=== PATIENT | female | born 1990 | race Caucasian/White ===

== ENCOUNTER 2017-05-26 14:46 | Emergency (ER) | payer BC ==
[2017-05-26 14:52] VITALS: BP 110/74
--- NOTE | 2017-05-26 15:36 | UC ---
Complaint Female HPI - HPI Summary HPI Summary: Pt is , 1 medical ab. Has been getting positive tests for about a week. Tried to set up apt at [facility], but they won't see her until 8 weeks and she' s not sure how far along she is. Boyfriend is only sexual partner and [place] of state. She visited him in early March and they were sexually active; her period came a little over a week later (it was early). She did not see him for the rest of March, then had a short period 04/22 - 04/23 and visited him again over - 05/02. Usual cycles are about 24 days long. Took her first HPT around 05/19 or 05/20 and it was a strong positive, also started feeling nauseated and tired around that time. - History Of Current Complaint Chief Complaint: UCGU Stated Complaint: WANTS TO KNOW HOW FAR ALONG Time Seen by Provider: 05/26/17 14:54 Hx Obtained From: Patient Hx Last Menstrual Period: 04/22/17 ?: Yes Onset/Duration: Still Present Timing: Constant Severity Currently: None Character: Not Applicable Aggravating Factor(s): Nothing Alleviating Factor(s): Nothing Associated Signs And Symptoms: Positive: Nausea. Negative: Vaginal Bleeding/ Discharge, Vaginal Discharge, Vomiting(# Of Episodes =) Related Hx: - 2, Para - 0 - Allergies/Home Medications Allergies/Adverse Reactions: Allergies Allergy/AdvReac Type Severity Reaction Status Date / Time No Known Allergies Allergy Verified 05/26/17 14:52 PMH/Surg Hx/FS Hx/Imm Hx Previously Healthy: Yes - Surgical History Surgical History: Yes Surgery Procedure, Year, and Place: appendectomy-2010, TONSILLECTOMY - Family History Known Family History: Positive: Other - no heritable genetic disorders in her family - Social History Alcohol Use: None Substance Use Type: None Smoking Status (MU): Never Smoked Tobacco Review of Systems Constitutional: Negative Skin: Negative Eyes: Negative ENT: Negative Respiratory: Negative Cardiovascular: Negative Gastrointestinal: Nausea Genitourinary: Negative Motor: Negative Neurovascular: Negative Musculoskeletal: Negative Neurological: Negative Psychological: Negative All Other Systems Reviewed And Are Negative: Yes Physical Exam Triage Information Reviewed: Yes Appearance: Well-Appearing, No Pain Distress, Well-Nourished Vital Signs: Initial Vital Signs Temp 98.5 F 07/12/17 14:49 Pulse 72 05/26/17 14:49 Resp 16 05/26/17 14:49 BP 110/74 05/26/17 14:49 Pulse Ox 100 05/26/17 14:49 Vital Signs Reviewed: Yes Eye Exam: Normal Eyes: Positive: Conjunctiva Clear ENT Exam: Normal ENT: Positive: Normal ENT inspection, Hearing grossly normal, Pharynx normal, TMs normal Dental Exam: Normal Neck exam: Normal Neck: Positive: Supple, Nontender, No Lymphadenopathy Respiratory Exam: Normal Respiratory: Positive: Chest non-tender, Lungs clear, Normal breath sounds, No respiratory distress, No accessory muscle use Cardiovascular Exam: Normal Cardiovascular: Positive: RRR, No Murmur Musculoskeletal Exam: Normal Neurological Exam: Normal Neurological: Positive: Alert Psychological Exam: Normal Skin Exam: Normal Complaint Female Dx - Course Course Of Treatment: Discussed need for early care - as pt does not report any high risk history, encouraged her to make an appointment for around 8 weeks as the Ob office recommended. Provided 20 minutes of counseling relating to eating, activity, smoking/drug use, and general information about care. - Differential Dx/Diagnosis Provider Diagnoses: . counseling Discharge - Discharge Plan Condition: Stable Disposition: HOME Patient Education Materials: (ED) Additional Instructions: As we discussed, given your menstrual cycles and sexual activity, you are most likely about 5 weeks . A rough estimate of your due date is January 24, 2018. There is no urgent need for you to have care before you move; you only need an early ultrasound if you have severe pain, bleeding, or if your cycles are very irregular. I recommend you make a appointment for your practice of choice in [place] for right after you move. If you have problems with nausea, make sure you drink water and eat snacks every 1-2 hours. You can also take a doxylamine (unisom) 25mg at bedtime and vitamin B6 during the day; these medicines are often packaged in a time-release pill and marketed for nausea in .
== END 2017-05-26 15:33 | disposition home or self-care (01) ==
LOC: UCEAST 14:46
DX: Z34.81 Encounter for supervision of other normal pregnancy, first trimester (principal)
CPT/HCPCS: 99201; G0463

== ENCOUNTER 2019-10-29 04:23 | Inpatient (IN) | payer OTHER ==
[2019-10-29 07:01] LABS: Urine Benzodiazepine Screen None Detected (None Detect); Urine Opiates Screen None Detected (None Detect)
--- NOTE | 2019-10-29 08:21 | PN ---
L&D Outpatient: Visit - Reproductive Information Estimated Due Date: 10/21/19 Gestational Age: 41 Weeks and 1 Days : 2 Para: 0 - Reason for Visit Visit Reason: Pt reports ctx starting yesterday afternoon and increasing in frequency and intensity overnight and into the morning. Denies LOF, reports active FM. - Antepartal Records Antepartal Record: Reviewed, Uncomplicated - Patient History Patient History Significant: Yes Patient History Significant For: LSIL Pap Review of Systems Constitutional: Uncomfortable CV Complaint: No Respiratory: Shortness of Breath: No Gastrointestinal: No Nausea/Vomiting, Normal Bowel Movement Genitourinary: No Dysuria, No Bleeding, No Leaking Fluid Musculoskeletal: No Epigastric Pain, Contractions Neurological: No Headache, No Visual Changes Movement: Normal L&D Outpatient: Exam Vitals - Most Recent: T-98.0, P-84, R-20, BP-123/79 Lab Values - Entire Visit: Laboratory Tests 10/29/19 06:15 Urine Opiates Screen None detected Ur Barbiturates Screen None detected Ur Phencyclidine Scrn None detected Ur Amphetamines Screen None detected U Benzodiazepines Scrn None detected Urine Cocaine Screen None detected U Cannabinoids Screen None detected - Cervical Exam Cervical Exam: on arrival was 1-2/ very posterior/ 60%/ high. on recheck 2 hours later was 2cm / 80%/ somewhat posterior/ -2. - Abdominal Exam Abdomen Exam: Non-Tender, Fundal Height Consistent with Dates - Membranes Membrane Status: Intact - Ultrasound/Biophysical Profile Ultrasound Status: Not Done EFM Findings - External Monitor Findings Baseline Heart Rate: 120 External Monitor Findings: Accelerations Present, No Pattern of Variable or Late Decelerations, Variability Moderate, Baseline Stable Contractions: Regular, Mild, Moderate, < 45 Seconds, 45-90 Seconds Contraction Frequency: 2-4 minutes L&D Outpatient: Asses/Plan Assessment: 29 year old at 41 1/7 weeks gestation in early labor, no evidence of acidemia or chorioamnionitis. - Discharge Diagnosis Discharge Diagnosis: Supervision-Normal Preg Plan: Continue Observation - Will recheck cervix in another 2 hours or sooner as needed.
[2019-10-29] MEDS ORDERED: Nalbuphine* 10 MG/ML 1 ML VIAL IM ONE (15:00)
[2019-10-29] MEDS ORDERED: Promethazine INJ(RESTRICTED)* 25 MG/ML 1 ML VIAL IM ONE (15:00)
--- NOTE | 2019-10-29 15:03 | PN ---
Progress Note - Progress Note Date of Service: 10/29/19 Note: Rechecked pt's cervix, still 3cm, unchanged from previous. Pt tearful, states she is in a lot of pain. Offered Nubain and Phenergan, pt would like to try.
--- NOTE | 2019-10-29 18:29 | PN ---
Progress Note - Progress Note Date of Service: 10/29/19 Note: Pt sleeping comfortably following Nubain and Phenergan administration. Will reevaluate and discuss plan of care when she wakes.
[2019-10-29] MEDS ORDERED: Buffered Lidocaine 1% SYRIN* 1 ML/SYRINGE INTRADERM ONE (21:23)
[2019-10-29] MEDS ORDERED: Lactated Ringers 1000 ML Bag* 1,000 ML IV ONE (21:23)
--- NOTE | 2019-10-29 21:44 | HP ---
General Information - Reason for Visit Pt admitted to L&D for postdates IOL in the context of prolonged prodromal labor. - General Information Maternal Age: 29 Grav: 2 Para: 0 SAB: 1 IEA: 0 Estimated Due Date: 10/21/19 Determined By: Early Ultrasound Gestational Age in Weeks/Days: 41 4/7 weeks Maternal Blood Type and Rh: A Positive - Results this Serology/RPR Result: Non-Reactive Rubella Result: Immune HBsAg Result: Negative HIV Result: Negative GBS Culture Result: Negative Past Medical History Delivery History: See Records - primiparous Pertinent Past Medical History: Non-Contributory Pertinent Past Surgical History: See Records - tonsillectomy Pertinent Family History: Non-Contributory - Antepartal Records Antepartal Records: Reviewed, Uncomplicated Review of Systems Constitutional: Comfortable CV Complaint: No Respiratory: Shortness of Breath: No Gastrointestinal: No Nausea/Vomiting, Normal Bowel Movement Genitourinary: No Dysuria, No Bleeding, No Leaking Fluid Musculoskeletal: No Epigastric Pain, Contractions Neurological: No Headache, No Visual Changes Movement: Normal Exam Allergies/Adverse Reactions: Allergies No Known Allergies Allergy (Verified 05/26/17 14:52) T-98.4, P-75, R-20, BP-107/70 Lab Values - Entire Visit: Laboratory Tests 10/29/19 06:15 Urine Opiates Screen None detected Ur Barbiturates Screen None detected Ur Phencyclidine Scrn None detected Ur Amphetamines Screen None detected U Benzodiazepines Scrn None detected Urine Cocaine Screen None detected U Cannabinoids Screen None detected - Measurements Height: 5 ft 7.5 in Weight: 80.739 kg Weight in lbs: 178.591724 Body Mass Index (BMI): 27.4 Pre- Weight: 63.503 kg Weight Gained This : 38 lbs and 0 ozs - Exam Breast: Breast Exam Deferred CVA: No CVA Tenderness Extremities: No Edema Heart: Normal Rhythm/Heart Sounds HEENT: No Significant Findings Lungs: Clear Bilaterally Rectal: Rectal Exam Deferred Reflexes: DTR 2+ Thyroid: No Thyromegaly - Abdominal Exam Abdomen Exam: Non-Tender, Fundal Height Consistent with Dates - Ultrasound/Biophysical Profile Ultrasound Status: Not Done Targeted Exam Findings See L&D Outpatient Visit Provider Note for Findings: Yes Estimated Weight: 7.5# Cervical Exam: 3cm Effacement: 80% Station: -1 Presenting Part: Vertex Membrane Status: Intact Bleeding/Discharge: Bloody Show EFM Findings - External Monitor Findings Baseline Heart Rate: 115 External Monitor Findings: Accelerations Present, No Pattern of Variable or Late Decelerations, Variability Moderate, Baseline Stable Contractions: Irregular, Mild, 45-90 Seconds Contraction Frequency: 3-5 minutes Assessment/Plan - Assessment 29 year old at 41 1/7 weeks gestation with prodromal labor, no evidence of acidemia - Obstetrical Risk Factors Obstetrical Risk Factors: Post-Dates - Plan Plan: Induction, Admit - Anticipate Vaginal Delivery Plan Comment: Discussed options with pt including discharge home to await active labor with return as scheduled for IOL Wednesday if not delivered sooner, vs IOL. Pt prefers to induce labor as soon as possible. Risks and benefits of Pitocin use reviewed. Pt in agreement with plan for IOL with Pitocin for postdates and prolonged prodromal labor. - Date/Time of Admission Date of Admission: 10/29/19 Time of Admission: 09:49
[2019-10-29] MEDS ORDERED: Oxytocin in LR* 20 UNITS/1,000 ML BAG IVPB SCH (22:00)
[2019-10-29] MEDS ORDERED: Lactated Ringers 1000 ML Bag* 1,000 ML IV SCH (22:00)
[2019-10-29 22:06] LABS: ABS Eosinophils 0.1 10^3/ul (0-0.6); ABS Lymphocytes 1.5 10^3/ul (1.0-4.8); ABS Monocytes 0.5 10^3/ul (0-0.8); ABS Neutrophils 6.3 10^3/ul (1.5-7.7); Eosinophil % 0.8 %; Hematocrit 34 % (35-47); Hemoglobin 11.8 g/dL (12.0-16.0); Lymphocyte % 18.1 %; Mean Corpuscular HGB Conc 35 g/dL (31-36); Mean Corpuscular Hemoglobin 32 pg (27-31); Mean Corpuscular Volume 91 fL (80-97); Mean Platelet Volume 10.6 fL (7.4-10.4); Platelet Count 164 10^3/uL (150-450); Red Blood Count 3.72 10^6 /uL (3.70-4.87); Red Cell Distribution Width 14 % (10-15); White Blood Count 8.4 10^3/uL (3.5-10.8)
[2019-10-29] MEDS ORDERED: Oxytocin in LR* 20 UNITS/1,000 ML BAG IVPB ONE (22:19)
--- NOTE | 2019-10-30 01:04 | PN ---
Progress Note - Progress Note Date of Service: 10/30/19 SOAP: Subjective: Pt reports ctx feeling more intense, coping well. Has been ambulating in room and sitting on ball. May try tub. Mother at bedside. Objective: FHR: Baseline 130/ moderate variability/ + accels/ no decels UCs: 4-5 minutes BP: 118/73 Membranes intact Pitocin at 8 mu/min Assessment: Pt appears to be responding well to Pitocin. No evidence of acidemia or chorioamnionitis. Plan: Continue Pitocin induction. Labor support and comfort measures.
--- NOTE | 2019-10-30 03:57 | PN ---
Progress Note - Progress Note Date of Service: 10/30/19 SOAP: Subjective: Pt uncomfortable with ctx but coping well. Mother at bedside. Used the tub for a while. Now back in bed, would like to try something else for pain. Objective: Cervix: 4cm/ 90%/ 0 station FHR: Baseline 130/ moderate variability/ + accels/ no decels UCs: 3-4 minutes Pitocin at 6 mu/ min Assessment: Pt making progress, responding well to Pitocin, coping well, but desires more pain relief. Plan: Discussed options with pt. Pt elects trial of nitrous oxide. Will continue Pitocin augmentation.
[2019-10-30] MEDS ORDERED: OBEPIDURAL* 250 ML EPIDURAL ONE (04:16)
[2019-10-30] MEDS ORDERED: Bupivacaine 0.25% SDV PF* 10 ML VIAL INJ ONE (04:23)
[2019-10-30] MEDS ORDERED: Lactated Ringers 1000 ML Bag* 1,000 ML IV ONE (04:56)
[2019-10-30] MEDS ORDERED: Phenylephrine 40 MCG/ML SYRINGE IV PUSH PRN (04:56)
[2019-10-30] MEDS ORDERED: Famotidine TAB* 20 MG PO PRN (04:56)
[2019-10-30] MEDS ORDERED: EPHEDrine (Pressors)* 50 MG/ML VIAL IV PUSH PRN (04:56)
[2019-10-30] MEDS ORDERED: Sodium Citrate/Citric Acid* 15 ML UDC PO PRN (04:56)
[2019-10-30] MEDS ORDERED: Lactated Ringers 1000 ML Bag* 1,000 ML IV SCH ×2 (05:00→18:00)
--- NOTE | 2019-10-30 06:06 | PN ---
Progress Note - Progress Note Date of Service: 10/30/19 SOAP: Subjective: Pt comfortable with epidural, sleeping at this time. Objective: FHR: Baseline 120/ moderate variability/ no accels/ no decels UCs: 1-6 minutes Pitocin at 4 mu/ min Membranes intact Assessment: Pt comfortable with epidural, ctx pattern has become more irregular. No evidence of acidemia or chorioamnionitis. Plan: Continue Pitocin induction. Will need to increase rate. Consider AROM with next exam.
--- NOTE | 2019-10-30 07:46 | PN ---
Progress Note - Progress Note Date of Service: 10/30/19 SOAP: Subjective: Pt remains comfortable with epidural. Feeling a bit nervous, otherwise well. Objective: AROM performed to clear fluid with some old blood present. Cervix: 6cm/ 100%/ 0/ vtx FHR: Baseline 120/ moderate variability/ + accels/ no decels UCs: 3-4 minutes Pitocin at 6mu/min Assessment: Pt making steady progress. No evidence of chorioamnionitis or acidemia. Plan: Continue Pitocin augmentation. Anticipate .
--- NOTE | 2019-10-30 11:21 | PN ---
Progress Note - Progress Note Date of Service: 10/30/19 Note: S: Pt resting comfortably in upright position. Has been shifting side per RN q 30 min. Notes some mild vaginal pressure but nothing persistent O: BP 110/75 HR 65 T 99.5 FHT 130bpm. Moderate variability. +Accels. Occasional early type decel UCs q 2-3, IV pitocin at 10mu/min VE 8cm/100%/vtx -1 A: IUP at 41-2/7 in labor Cat II FHT: Doubt metabolic acidemia P: Enc rest. Continue IV pitocin and frequent position changes. Close monitoring of maternal/ status
[2019-10-30] MEDS ORDERED: diPHENhydraMINE PO* 50 MG PO ONE (14:23)
--- NOTE | 2019-10-30 14:23 | PN ---
Progress Note - Progress Note Date of Service: 10/30/19 Note: S: Pt slept soundly for the past few hours. Feeling better after the rest. Describes some vaginal pressure. O: BP 113/78 HR 71 T 99.6 FHT: 140bpm. Min-Mod variability. Occ early type decels UCs q 2-3 min. IV pit at 10mu/min VE: Swollen anterior lip/100%/vtx 0 A: IUP at 41-2/7 in active labor Cat II FHT: Doubt metabolic acidemia P: Counseled pt for a one time dose of Benadryl to help with edema in cervix. She agrees. Close monitoring of maternal/ status. Anticipate trial of pushing soon.
[2019-10-30] MEDS ORDERED: Acetaminophen TAB* 325 MG ONE (16:49)
[2019-10-30] MEDS ORDERED: Acetaminophen TAB* 325 MG PO ONE (16:54)
[2019-10-30] MEDS ORDERED: Glycerin ADULT SUPP PR PRN (17:42)
[2019-10-30] MEDS ORDERED: Acetaminophen TAB* 325 MG PO PRN (17:42)
[2019-10-30] MEDS ORDERED: Dibucaine 1% 28.35 GM TUBE PR PRN (17:42)
[2019-10-30] MEDS ORDERED: Misoprostol TAB* 200 MCG PR ONE (17:43)
[2019-10-30] MEDS: Ibuprofen TAB* 600 MG PO SCH (17:56)
[2019-10-30] MEDS: Witch Hazel PAD* JAR TOPICAL PRN (17:57)
[2019-10-30] MEDS ORDERED: Oxytocin in LR* 20 UNITS/1,000 ML BAG IVPB SCH (18:00)
--- NOTE | 2019-10-30 18:17 | PROCNOTE ---
[facility] OB: Delivery Note - Delivery A Date of : 10/30/19 Time of : 17:18 [place] Sex: Male - "Shady" Weight at : 7 lb 13 oz Score 1 Minute: 6 Score 5 Minutes: 9 Gestational Age in Weeks and Days at Delivery: 41 Weeks and 2 Days Delivery Method: Spontaneous Vaginal Labor: Spontaneous - augmentation with IV pitocin Did Patient attempt ?: N/A, No Previous Amniotic Fluid: Clear Estimated Blood Loss: 400 Anesthesia/Analgesia: CEI for Labor Delivered By: Basilio Carrasco - Nursery Level of Nursery: Regular/Bedside - Perineum Perineal Injury Comment: R labial abrasion. Hemostatic and not repaired Perineal Repair: None - Events Delivery Events of Note: Pitocin During Labor, Post- Bleeding - Meds Given Delivery Events of Note Comment: 800mcg cytotec per rectum by CNM - Additional Delivery Notes Additional Delivery Notes: Pt admitted following prolonged latent labor phase. With placement of epidural and IV pitocin augmentation progressed into active labor. Active phase 10 hours , 14 min. Pushed x 1 hours, 37 min. With maternal fever of 101.7 noted. In consultation with Dr. Mckeon PO Tylenol given to mother and antibiotics deferred as delivery imminent. liveborn male. Slow, controlled delivery of head. OA to [place]. Shoulders followed with strong maternal push. intially stunned. Cord clamped x 2 and cut after 30 seconds. to warmer for evaluation by special care nurse and neonatology. Apgars 6/9. Returned to maternal abdomen for transition. Spontaneous delivery intact placenta. Membranes complete. Fundus initially atonic with IV pitocin infusing and brisk bleeding noted. 800mcg Cytotec multimedia services coordinator per rectum x 1. Fundus firm to massage and remained firm. Bleeding resolved. Perineum intact. No repair needed as above. EBL 400mL. At time of note mother and in stable condition. Planning to breast feed.
[2019-10-30] MEDS ORDERED: Simethicone TAB* 80 MG TAB.CHEW PO SCH (21:00)
[2019-10-31] MEDS: Ibuprofen TAB* 600 MG PO SCH ×4 (04:08→19:59)
[2019-10-31 06:40] LABS: ABS Basophils 0.1 10^3/ul (0-0.2); ABS Eosinophils 0.1 10^3/ul (0-0.6); ABS Lymphocytes 2.1 10^3/ul (1.0-4.8); ABS Neutrophils 14.2 10^3/ul (1.5-7.7); Eosinophil % 0.5 %; Hematocrit 32 % (35-47); Hemoglobin 10.7 g/dL (12.0-16.0); Lymphocyte % 11.9 %; Mean Corpuscular HGB Conc 34 g/dL (31-36); Mean Corpuscular Hemoglobin 31 pg (27-31); Mean Corpuscular Volume 90 fL (80-97); Platelet Count 134 10^3/uL (150-450); Red Blood Count 3.49 10^6 /uL (3.70-4.87); Red Cell Distribution Width 15 % (10-15); White Blood Count 17.4 10^3/uL (3.5-10.8)
[2019-10-31] MEDS: Docusate CAP* 100 MG PO SCH ×4 (08:11→20:03)
[2019-10-31] MEDS ORDERED: Ferrous Gluconate TAB* 324 MG TAB PO SCH (09:00)
[2019-10-31] MEDS: OBEPIDURAL* 250 ML EPIDURAL SCH (12:22)
[2019-11-01] MEDS: Ibuprofen TAB* 600 MG PO SCH ×3 (08:36→14:32)
[2019-11-01] MEDS: Docusate CAP* 100 MG PO SCH ×2 (08:36→14:32)
[2019-11-01 09:15] VITALS: BP 113/68
[2019-11-01] MEDS: Witch Hazel PAD* JAR TOPICAL PRN (15:38)
== END 2019-11-01 18:07 | disposition home or self-care (01) | DRG 560 ==
LOC: MCHOBOUT 04:23 → MCHOB 21:24
PROVIDERS: ADMIT Midwife; ATTEND Midwife
PROC: 10E0XZZ Delivery of Products of Conception, External Approach (ICD-10-PCS; principal; 2019-10-30)
PROC: 10907ZC Drainage of Amniotic Fluid, Therapeutic from Products of Conception, Via Natural or Artificial Opening (ICD-10-PCS; 2019-10-30)
DX: O75.2 Pyrexia during labor, not elsewhere classified (principal); O72.1 Other immediate postpartum hemorrhage; Z37.0 Single live birth; O48.0 Post-term pregnancy; O63.0 Prolonged first stage (of labor); O70.0 First degree perineal laceration during delivery; Z3A.41 41 weeks gestation of pregnancy
CPT/HCPCS: 36415; 80307; 85025; 86850; 86900; 86901; 87070; 88307; A9270-GY; J2300; J2550; J3490